=== PATIENT | male | born 1995 | race Caucasian/White ===

== ENCOUNTER 2017-01-29 16:34 | Emergency (ER) | payer SELFPAY ==
[~2017-01-29] VITALS: Ht 175.3 cm; Wt 68.0 kg
[2017-01-29 16:36] VITALS: BP 128/72; PULSE 62; RESP 16; TEMP 98.6; O2SAT 99
--- NOTE | 2017-01-29 16:45 | PD ---
Physical Exam Date Seen by Provider: Jan 29, 2017 Time Seen by Provider: 16:44 Narrative 21 yo male that presents to the ED for injury to left eye. Was cutting metal pipe and got something on his eye. pain is 7/10. Irritation noted. No other medical complaints. Unclear tetanus history. No visual loss. Vitals sign stable. Patient awaiting bed placement. Data Data Last Documented VS Vital Signs Date Time Temp Pulse Resp B/P Pulse Ox O2 Delivery O2 Flow Rate FiO2 01/29/17 16:36 98.6 62 16 128/72 99 Room Air [facility] Medical Record Reviewed: Yes Supervised Visit with ANGELIA: No Sanchez Maciel Jan 29, 2017 16:45
[2017-01-29] MEDS ORDERED: IBUP800T23 PO (17:32)
[2017-01-29] MEDS ORDERED: ERYTOIN10 LEFT EYE (17:32)
--- NOTE | 2017-01-29 17:34 | PD ---
HPI Chief Complaint: Eye Problems/Injury Time Seen by Provider: 17:31 Travel History International Travel<30 days: No Contact w/Intl Traveler<30days: No Traveled to known affect area: No History of Present Illness HPI 21-year-old male presents to emergency Department with complaint of a possible piece of metal in his left eye. He was cutting metal yesterday and can see a piece in his eye and is having left eye pain. Reports clear drainage. Has attempted to remove the piece of metal but has not been successful. Denies fever, chills, nausea, vomiting. Reports blurred vision. No known allergies. No other medical complaints. No other modifying factors or associated signs and symptoms. PFSH Past Medical History Tetanus Vaccination: Unknown Past Surgical History Surgical History: No Previous Surgery Social History Alcohol Use: No Tobacco Use: Yes Substance Use: No Allergies-Medications (Allergen,Severity, Reaction): Coded Allergies: No Known Allergies (Unverified , 01/29/17) Reported Meds & Prescriptions Reported Meds & Active Scripts Active Ibuprofen 800 Mg Tab 800 Mg PO Q6HR PRN Erythromycin Opth Oint 5 Mg/Gm Oint 1 Applic LEFT EYE QID 7 Days Review of Systems Except as stated in HPI: all other systems reviewed are Neg Physical Exam Narrative GENERAL: Well-nourished, well-developed male patient, in no acute distress SKIN: Warm and dry. HEAD: Atraumatic. Normocephalic. EYES: Pupils equal and round at 3 mm with brisk reaction. PERRLA. EOMI. visual acuity 20/25 bilateral. Left lid eversion with no foreign body noted; penetrated foreign body noted at the 10 o'clock position over the iris. Left eye with scleral erythema and without lid edema. No orbital tenderness, erythema or cellulitis. Left eye with photophobia. No consensual photophobia. No scleral icterus. Clear drainage. Zavala lamp exam reveals a foreign body at the 10 o'clock position over the iris. ENT: Mucosa pink and moist. Airway patent. NECK: Trachea midline. CARDIOVASCULAR: Regular rate. RESPIRATORY: No accessory muscle use. GASTROINTESTINAL: Flat. NEUROLOGICAL: Awake and alert. Oriented 3. No obvious cranial nerve deficits. Motor grossly within normal limits. Normal speech. PSYCHIATRIC: Appropriate mood and affect; insight and judgment normal. Data Data Last Documented VS Vital Signs Date Time Temp Pulse Resp B/P Pulse Ox O2 Delivery O2 Flow Rate FiO2 01/29/17 16:36 98.6 62 16 128/72 99 Room Air MDM Medical Decision Making Medical Screen Exam Complete: Yes Emergency Medical Condition: Yes Medical Record Reviewed: Yes Differential Diagnosis eye foreign body, corneal abrasion, corneal ulceration Narrative Course 21-year-old male with a penetrated foreign body to the left eyeball. Foreign body removed. Mandatory outpatient referral ordered for outpatient follow-up to ophthalmology. Instructed patient to follow up with ophthalmology on Wednesday. Ibuprofen and erythromycin prescribed for home. Patient verbalizes understanding and agreement with treatment plan. Patient is medically cleared and stable for discharge. Discussed reasons to return to the emergency department. Instructed patient to follow up with primary care provider. Patient agrees with treatment plan. The patients vital signs are stable and the patient is stable for outpatient follow-up and treatment. Patient discharged home, stable and in no acute distress. Diagnosis Primary Impression: Penetration of left eyeball with foreign body Qualified Code: S05.52XA - Penetration of left eyeball with foreign body, initial encounter Referrals: [facility] Primary Care Physician Patient Instructions: Corneal Abrasion (ED), Eye Foreign Body (ED), General Instructions Additional Instructions: Ibuprofen or Tylenol as directed and as needed to reduce pain Do not patch the eye Do not rub the eye Refrigerated eye drops as needed to reduce pain Cool compresses to the eye as needed to reduce pain Follow-up with ophthalmology on Wednesday Primary care provider Return to the emergency department immediately with worsening of symptoms Med/Other Pt SpecificInfo: Prescription(s) given Scripts Ibuprofen 800 Mg [id number] Mg PO Q6HR PRN (PAIN) #30 TAB Ref 0 Prov:Aliza Massey 01/29/17 Erythromycin Opth Oint 5 Mg/Gm Oint1 Applic LEFT EYE QID 7 Days Ref 0 Prov:Aliza Massey 01/29/17 Disposition: DISCHARGE HOME Condition: Stable Aliza Massey Jan 29, 2017 17:34
== END 2017-01-29 17:55 | disposition home or self-care (01) ==
LOC: NEPK 16:34
DX: T15.92XA Foreign body on external eye, part unspecified, left eye, initial encounter (principal); Z72.0 Tobacco use; X58.XXXA Exposure to other specified factors, initial encounter; Y93.9 Activity, unspecified; Y92.9 Unspecified place or not applicable
CPT/HCPCS: 65220